=== PATIENT | male | born 1960 | race Caucasian/White ===

== ENCOUNTER → 2016-08-04 | Day surgery (SDC) | payer OTHER ==
[2016-07-31 09:09] VITALS: BMI 47.0
[~2016-08-04] VITALS: Ht 177.8 cm; Wt 147.7 kg
[~2016-08-04] MED LIST: CANA1TAB3 PO; FOLI1TAB7 PO; FURO-85 PO; HYDR-4332 PO; LIDOCAINE HCL 2% 2 ML VIAL (20MG/ML) ONE; LOSA1TAB PO; METF-384 PO; PROPOFOL IV EMULSION 10 MG/ML 20 ML VIAL IV ONE; RANI300T2 PO; RIVA1TAB4 PO; SITA100T3 PO; SODIUM CHLORIDE 0.9% 500ML 500 ML IV ONE
[2016-08-04 09:35] VITALS: Ht 177.8 cm; Wt 147.7 kg
[2016-08-04 09:53] VITALS: TEMP 36.8
--- NOTE | 2016-08-04 10:46 | Endo History and Physical ---
History & Physical Date of Service: Aug 04, 2016. Chief Complaint: screening for colon cancer Referring Physician: Dr. Gutierrez History of Present Illness 55 yo CM who presents for screening colonoscopy Past Surgical History Hx Cardiac Surgery: Yes (HEART CATH, NO STENT) Hx Internal Defibrillator: No Hx Pacemaker: No Hx Abdominal Surgery: No Hx of Implantable Prosthesis: No Hx Post-Op Nausea and Vomiting: No Hx Cancer Surgery: No Hx Thoracic Surgery: No Hx Orthopedic: No Hx Urinary Tract Surgery: No Family History None Social History Smoking Status: Former Smoker Hx Substance Use: Yes (SEE MED REC) Hx Alcohol Use: Yes (VERY RARELY) Allergies Coded Allergies: Penicillins (Verified Allergy, Intermediate, RASH, 07/31/16) Current Medications Reported Home Medications Medications Dose Route/Sig Max Daily Dose Days Date Category Invokana (Canagliflozin) 300 Mg Tab 1 Tab PO QPM 07/31/16 Reported Zantac (Ranitidine HCl) 300 Mg Tab 300 Mg PO QPM 07/31/16 Reported Cozaar (Losartan Potassium) 25 Mg Tab 25 Mg PO QPM 07/31/16 Reported Lasix (Furosemide) 20 Mg Tab 20 Mg PO QPM 02/29/16 Reported Januvia (Sitagliptin Phosphate) 100 Mg Tab 100 Mg PO QPM 02/29/16 Reported LORTAB 10-325 mg (Hydrocodone-Acetaminophen) 1 Tab Tab 1 Tab PO BID PRN 02/29/16 Reported Folvite (Folic Acid) 1 Mg Tab 3 Tab PO QPM 02/29/16 Reported Xarelto (Rivaroxaban) 20 Mg Tab 20 Mg PO QPM 02/29/16 Reported Glucophage (Metformin Hcl) 1,000 Mg Tab 2 Tabs PO QPM 02/29/16 Reported Vital Signs Weight (Kilograms): 147.73 Height (Feet): 5 Height (Inches): 10 Date Time Temp Pulse Resp B/P Pulse Ox O2 Delivery O2 Flow Rate FiO2 08/04/16 09:53 36.8 70 18 170/98 95 Room Air Physical Exam General Appearance: WD/WN, no apparent distress Respiratory/Chest: Auscultation: breath sounds normal Cardiovascular: Heart Auscultation: RRR Abdomen: Bowel Sounds: normal Inspection & Palpation: soft, non-distended, no tenderness, guarding & rebound Assessment and Plan Assessment: 55 yo CM who presents for screening colonoscopy Plan: Proceed with colonoscopy.
--- NOTE | 2016-08-04 11:16 | Discharge Instructions ---
Endoscopy Patient Instructions Date / Procedure(s) Performed Aug 04, 2016. Colonoscopy Allergy Information Coded Allergies: Penicillins (Verified Allergy, Intermediate, RASH, 07/31/16) Discharge Date / Findings Aug 04, 2016. Colon polyp Internal hemorrhoids Medication Instructions Stopped Medication(s): xeralto stopped on Sun08/02/16 OK to resume all medications today as prescribed Reported Home Medications Medications Dose Route/Sig Max Daily Dose Days Date Category Invokana (Canagliflozin) 300 Mg Tab 1 Tab PO QPM 07/31/16 Reported Zantac (Ranitidine HCl) 300 Mg Tab 300 Mg PO QPM 07/31/16 Reported Cozaar (Losartan Potassium) 25 Mg Tab 25 Mg PO QPM 07/31/16 Reported Lasix (Furosemide) 20 Mg Tab 20 Mg PO QPM 02/29/16 Reported Januvia (Sitagliptin Phosphate) 100 Mg Tab 100 Mg PO QPM 02/29/16 Reported LORTAB 10-325 mg (Hydrocodone-Acetaminophen) 1 Tab Tab 1 Tab PO BID PRN 02/29/16 Reported Folvite (Folic Acid) 1 Mg Tab 3 Tab PO QPM 02/29/16 Reported Xarelto (Rivaroxaban) 20 Mg Tab 20 Mg PO QPM 02/29/16 Reported Glucophage (Metformin Hcl) 1,000 Mg Tab 2 Tabs PO QPM 02/29/16 Reported Provider Instructions Activity Restrictions - No exercising or heavy lifting for 24 hours. - Do not drink alcohol the day of the procedure. - Do not drive a car or operate machinery until the day after the procedure. - Do not make any important decisions or sign important papers in 24 hours after the procedure. Following Day: - Return to full activity which may include returning to work/school. Diet Start your diet with liquids and light foods (jello, soup, juice, toast). Then eat your usual diet if not nauseated. Treatment For Common After Affects For mild abdominal pain, bloating, or excessive gas: - Rest - Eat lightly - Lie on right side Follow-Up Information Follow-up with Dr. Gutierrez as scheduled Anesthesia Information What You Should Know You have had a procedure that required some medicine to reduce anxiety and discomfort. This treatment is called moderate sedation. After receiving the treatment, you may be sleepy, but you will be able to breathe on your own. The effects of the treatment may last for several hours. Follow these instructions along with Activity/Diet recommendations noted above: * Do NOT do anything where dizziness or clumsiness would be dangerous. * Rest quietly at home today, then you can be up and about tomorrow. * Have a responsible person stay with you the rest of today. * You may have had an I.V. today. If so, you may take the dressing off later today. Recommendations Call your doctor if: * Trouble breathing * Continuous vomiting for more than 24 hours * Temperature above 101 degrees * Severe abdominal pain or bloating * Pain not relieved by pain medicine ordered * There is increased drainage or redness from any incision * A large amount of rectal bleeding greater than 2-3 tablespoons. (If you had a polyp/s removed or have hemorrhoids, a small amount of blood - from the rectum is to be expected.) * You have any unanswered questions or concerns. IN THE EVENT OF A SERIOUS EMERGENCY, GO TO THE NEAREST EMERGENCY ROOM Your discharge instructions were prepared by provider Kenney Byrd. Patient Instructions Signature Page Ángel Ellis Patient (or Guardian) Signature/Date: I have read and understand the instructions given to me by my caregivers. Caregiver/RN/Doctor Signature/Date: The above-named patient and/or guardian has received patient instructions on this date. + Original Patient Signature Page (only) stays with chart. Please make copy for patient.
--- NOTE | 2016-08-04 11:32 | Anesthesiology Progress Note ---
Anesthesia Post Op Note Date & Time Aug 04, 2016 at 11:33 Vital Signs Pain Intensity: 0 Vital Signs Past 12 Hours Date Time Temp Pulse Resp B/P Pulse Ox O2 Delivery O2 Flow Rate FiO2 08/04/16 11:19 76 18 140/89 95 Room Air 08/04/16 11:04 80 16 137/74 92 Room Air 08/04/16 09:53 36.8 70 18 170/98 95 Room Air Notes Mental Status: alert / awake / arousable, participated in evaluation Pt Amnestic to Procedure: Yes Nausea / Vomiting: adequately controlled Pain: adequately controlled Airway Patency, RR, SpO2: stable & adequate BP & HR: stable & adequate Hydration State: stable & adequate Anesthetic Complications: no major complications apparent
[2016-08-04 11:34] VITALS: BP 154/97; PULSE 77; O2SAT 96
--- NOTE | 2016-08-04 15:03 | GI REPORT ---
Procedure Date: 08/04/2016 10:21 AM Procedure: Colonoscopy Indications: Screening for colorectal malignant neoplasm Medicines: Monitored Anesthesia Care Complications: No immediate complications. Estimated Blood Loss: Estimated blood loss: none. Procedure: Pre-Anesthesia Assessment: - Prior to the procedure, a History and Physical was performed, and patient medications and allergies were reviewed. The patient's tolerance of previous anesthesia was also reviewed. The risks and benefits of the procedure and the sedation options and risks were discussed with the patient. All questions were answered, and informed consent was obtained. Prior Anticoagulants: The patient has taken Xarelto (rivaroxaban), last dose was 2 days prior to procedure. ASA Grade Assessment: III - A patient with severe systemic disease. After reviewing the risks and benefits, the patient was deemed in satisfactory condition to undergo the procedure. After I obtained informed consent, the scope was passed under direct vision. Throughout the procedure, the patient's blood pressure, pulse, and oxygen saturations were monitored continuously. The scope was introduced through the anus and advanced to the terminal ileum. The colonoscopy was performed without difficulty. The patient tolerated the procedure well. The quality of the bowel preparation was good. The terminal ileum, ileocecal valve, appendiceal orifice, and rectum were photographed. Findings: A 5 mm polyp was found in the transverse colon. The polyp was sessile. The polyp was removed with a hot snare. Resection and retrieval were complete. Non-bleeding internal hemorrhoids were found during retroflexion. The hemorrhoids were small. Impression: - One 5 mm polyp in the transverse colon, removed with a hot snare. Resected and retrieved. - Non-bleeding internal hemorrhoids. Recommendation: - Resume previous diet. - Continue present medications. - Repeat colonoscopy for surveillance based on pathology results. - Return to primary care physician as previously scheduled. Kenney Byrd DO 08/04/2016 3:03:08 PM This report has been signed electronically. Note Initiated On: 08/04/2016 10:21 AM I attest to the content of the Intraoperative Record and orders documented therein, exceptions below
== END | disposition home or self-care (01) ==
LOC: C.GI 09:08
PROVIDERS: ATTEND Internal Medicine
DX: Z12.11 Encounter for screening for malignant neoplasm of colon (principal); D12.3 Benign neoplasm of transverse colon; K64.8 Other hemorrhoids; E66.01 Morbid (severe) obesity due to excess calories; E11.9 Type 2 diabetes mellitus without complications; G47.33 Obstructive sleep apnea (adult) (pediatric); Z68.42 Body mass index [BMI] 45.0-49.9, adult; Z88.0 Allergy status to penicillin; Z87.891 Personal history of nicotine dependence

== ENCOUNTER → 2016-11-01 | Outpatient (CLI) | payer OTHER ==
[~2016-11-01] MED LIST changes: -LIDOCAINE HCL 2% 2 ML VIAL (20MG/ML) ONE; -PROPOFOL IV EMULSION 10 MG/ML 20 ML VIAL IV ONE; -SODIUM CHLORIDE 0.9% 500ML 500 ML IV ONE
== END | disposition home or self-care (01) ==
LOC: C.RDSM 14:20
PROVIDERS: ATTEND Family Medicine Sports Medicine
DX: M25.561 Pain in right knee (principal)

== ENCOUNTER → 2016-11-14 | Outpatient (CLI) | payer OTHER ==
[2016-11-14 17:50] LABS: ALT/SGPT 99 U/L (12-78); AST/SGOT 46 U/L (15-37); BLOOD UREA NITROGEN 12 mg/dl (7-18); BUN/CREATININE RATIO 11.6 (10-20); CARBON DIOXIDE 27 mmol/L (21-32); CHLORIDE 105 mmol/L (98-107); GLUCOSE 230 mg/dl (70-99); SODIUM 139 mmol/L (136-145)
[2016-11-14 17:53] LABS: ALB/GLOB RATIO 1.1 (0.9-2); ALKALINE PHOSPHATASE 53 U/L (45-117)
== END | disposition home or self-care (01) ==
LOC: C.LABPBG 11:47
PROVIDERS: ATTEND Family Medicine
DX: R74.8 Abnormal levels of other serum enzymes (principal); K76.0 Fatty (change of) liver, not elsewhere classified

== ENCOUNTER → 2016-12-22 | Outpatient (CLI) | payer OTHER ==
[2016-12-22 12:24] LABS: BASO % 0.3 %; BASO ABS # 0.02 K/uL (0-0.2); COMPLETE YES; EOS % 2.8 %; HEMATOCRIT 49.2 % (42-52); IG% 1.1 %; LYMPH % 34.3 %; LYMPH ABS # 2.12 K/uL (1.2-3.4); MEAN CELL VOLUME 91.3 fL (80-100); MEAN CORPUSCULAR HEMOGLOBIN 31.5 pg (25-34); MEAN CORPUSCULAR HGB CONC 34.6 g/dl (32-36); MEAN PLATELET VOLUME 10.9 fL (7.4-10.4); NEUT % 51.5 %; PLATELET COUNT 179 K/uL (130-400); RED BLOOD COUNT 5.39 M/uL (4.7-6.1); WHITE BLOOD COUNT 6.18 K/uL (4.8-10.8)
== END | disposition home or self-care (01) ==
LOC: C.LABPBG 10:56
PROVIDERS: ATTEND Physician Assistant
DX: R21 Rash and other nonspecific skin eruption (principal)

== ENCOUNTER → 2017-01-02 | Outpatient (CLI) | payer OTHER ==
--- NOTE | 2017-01-02 11:39 | DIAGNOSTIC IMAGING REPORT ---
VENOUS DOPPLER LWR EXT BILA HISTORY: I87.2 Venous insufficiency (chronic) (peripheral) COMPARISON: Left lower extremity venous Doppler 09/01/2014 TECHNIQUE: Multiple real-time sonographic images of the deep venous structures of the lower extremities were obtained assessing lovell scale, color Doppler flow and spectral waveform appearance. FINDINGS: RIGHT LOWER EXTREMITY: The common femoral, profunda femoral, femoral, popliteal, and greater saphenous veins demonstrate complete compressibility with external transducer pressure and spontaneous and phasic spectral and color flow. The posterior tibial and peroneal veins demonstrate complete compressibility with external transducer pressure. LEFT LOWER EXTREMITY: At least partially occlusive echogenic thrombus is seen within the common femoral, mid femoral vein and proximal portion of the greater saphenous vein and also within portions of the anterior tibial and peroneal veins. The popliteal vein appears patent. IMPRESSION: 1. Extensive echogenic deep venous thrombosis throughout the left lower extremity is seen extending from the common femoral vein distally as above. 2. No right-sided deep venous thrombosis identified. The above report was generated using voice recognition software. It may contain grammatical, syntax or spelling errors. Electronically signed by: Rashaun Munoz M.D. 01/02/2017 11:37 AM Dictated Date/Time: 01/02/2017 11:28 AM
[2017-01-02 14:51] LABS: ESTIMATED AVERAGE GLUCOSE 171 mg/dl; HA1C FLAG Normal (Normal)
== END | disposition home or self-care (01) ==
LOC: C.ULTRBC 10:27
PROVIDERS: ATTEND Physician Assistant
DX: I87.2 Venous insufficiency (chronic) (peripheral) (principal); R21 Rash and other nonspecific skin eruption; E11.9 Type 2 diabetes mellitus without complications; I82.412 Acute embolism and thrombosis of left femoral vein

== ENCOUNTER → 2017-09-18 | Outpatient (CLI) | payer OTHER ==
[~2017-09-18] MED LIST changes: -FOLI1TAB7 PO; +FOLI1TAB8 PO
[2017-09-18 14:33] LABS: ALT/SGPT 80 U/L (12-78); AST/SGOT 45 U/L (15-37); BLOOD UREA NITROGEN 9 mg/dl (7-18); CALCIUM 9.6 mg/dl (8.5-10.1); CARBON DIOXIDE 23 mmol/L (21-32); CHOLESTEROL 230 mg/dl (0-200); CREATININE 0.91 mg/dl (0.60-1.40); GLUCOSE 312 mg/dl (70-99); SODIUM 134 mmol/L (136-145)
[2017-09-18 14:39] LABS: ALKALINE PHOSPHATASE 70 U/L (45-117); LDL CHOLESTEROL CALCULATED 120 mg/dl; TOTAL PROTEIN 7.7 gm/dl (6.4-8.2)
[2017-09-19 05:53] LABS: HEMOGLOBIN A1C 10.7 % (4.5-5.6)
== END | disposition home or self-care (01) ==
LOC: C.LABPBG 09:07
PROVIDERS: ATTEND Family Medicine
DX: E11.9 Type 2 diabetes mellitus without complications (principal)

== ENCOUNTER 2025-03-23 15:33 | Observation (INO) ==
[2025-03-23 16:07] LABS: Hematocrit (blood only) 44.1 % (42.0-52.0); Hemoglobin 15.4 g/dl (14.0-18.0); Immature Granulocytes # (auto) 0.06 K/uL (0.01-0.20); Immature Granulocytes % (auto) 0.7 %; Mean Corpuscular Hemoglobin 31.6 pg (25.0-34.0); Mean Corpuscular Volume 90.6 fL (80.0-100.0); Platelet Count 166 K/uL (130-400); RDW Standard Deviation 42.8 fL (36.4-46.3); Red Blood Count 4.87 M/uL (4.70-6.10); White Blood Count 8.11 K/ul (4.8-10.8)
[2025-03-23 16:31] LABS: Alanine Aminotransferase 15.0 U/L (7-52); Albumin Globulin Ratio 1.1 (0.9-2); Albumin Level 3.9 gm/dl (3.4-5.0); Alkaline Phosphatase 76.0 U/L (34-104); Anion Gap 13.0 (3-11); Bilirubin,Total 1.0 mg/dl (0.2-1.0); Blood Urea Nitrogen 14.0 mg/dl (6-23); Calcium 9.4 mg/dl (8.6-10.3); Carbon Dioxide 22.0 mmol/L (21-32); Chloride 100.0 mmol/L (98-107); Creatinine Clr Calc Pharmacy 109.9 ml/min; Globulin 3.5 gm/dl (2.5-4.0); Glucose 295.0 mg/dl (70-99(Fasting)); Potassium 3.9 mmol/L (3.5-5.1); Sodium 135.0 mmol/L (136-145); Total Protein 7.4 gm/dl (6.0-8.3)
--- NOTE | 2025-03-23 16:31 | XRay Report ---
Clinical History: Chest pain and shortness of breath Technique: A frontal view of the chest was obtained Findings: There are no confluent pulmonary infiltrates. The heart size is at the upper limit of normal. No pleural effusion or pneumothorax is seen. There is no definite pulmonary nodule. No fracture is noted. There is thoracic degenerative disc disease Impression: No active disease Electronically signed by Braulio Cuellar 03-23-2025 4:30 PM
[2025-03-23 16:34] LABS: INR 1.2 (0.9-1.1); Partial Thromboplastin Time 31 Seconds (21-31); Prothrombin Time 13.0 Seconds (9.0-12.0)
--- NOTE | 2025-03-23 16:52 | Ultrasound Report ---
Clinical History: Pain and swelling Technique: Venous ultrasound evaluation was performed utilizing grayscale, color Doppler and wave form evaluation. Images were also obtained with and without compression Findings: The right common femoral, superficial femoral, popliteal, and visualized calf veins all demonstrate thrombus with lack of compressibility and hypoechoic material within the lumens. There is also thrombus within the greater saphenous vein Impression: Extensive right leg deep venous thrombosis ACT 112: Positive. There are findings on this exam that require communication between the performing entity and the patient following Patient Test Result Information Act ([place] ACT 112) guidelines. Electronically signed by Braulio Cuellar 03-23-2025 4:52 PM
[2025-03-23] MEDS: OPTIRAY 320 125ml IV ONE (16:56)
--- NOTE | 2025-03-23 17:21 | CT Scan Report ---
Technique: Axial computed tomography images were obtained of the chest after the administration of intravenous contrast according to the CT angiogram protocol Findings: There is pulmonary embolism in the distal right pulmonary artery and extending into lobar, segmental, and subsegmental branches There is mild dependent subsegmental atelectasis in both lower lobes. The lungs otherwise appear clear without infiltrate or mass. There is no pleural effusion or pneumothorax. There is no sign of pulmonary fibrosis or other diffuse interstitial process. No endobronchial lesion is seen There is no mediastinal, hilar, or axillary adenopathy. The thoracic aorta appears unremarkable with no sign of aneurysm or dissection. There is no pericardial effusion. There is mild dilatation of the right atrium and right ventricle that could be due to right heart strain The spleen is mildly enlarged measuring 14 cm. There are 2 adjacent cysts of the left hepatic lobe, the larger measuring 3.5 cm. There are suspected smaller cysts in the right hepatic lobe with adjacent foci of calcification. No fracture is seen. No focal osseous lesion is evident Impression: 1. Moderate amount of pulmonary embolism 2. Suspected right heart strain 3. Essentially normal-appearing lungs 4. Hepatic cysts ACT 112: Positive. There are findings on this exam that require communication between the performing entity and the patient following Patient Test Result Information Act ([place] ACT 112) guidelines. Electronically signed by Braulio Cuellar 03-23-2025 5:21 PM
[2025-03-23] MEDS ORDERED: DEXTROSE 50% 50 ML SYRINGE IV PRN (18:19)
[2025-03-23] MEDS ORDERED: CARBOHYDRATES FOR HYPOGLYCEMIA PO PRN (18:19)
[2025-03-23] MEDS ORDERED: ONDANSETRON INJ 2 MG/ML 2 ML VIAL IV PRN (18:19)
[2025-03-23] MEDS ORDERED: GLUCAGON FOR INJ 1 MG VIAL SQ PRN (18:19)
[2025-03-23] MEDS ORDERED: MELATONIN 3 MG TAB PO PRN (18:19)
[2025-03-23] MEDS ORDERED: GLUCOSE 40% GEL 15 GM TUBE PO PRN (18:19)
[2025-03-23] MEDS ORDERED: GLUCOSE 10 TAB/TUBE PO PRN (18:19)
--- NOTE | 2025-03-23 18:21 | Communication Note ---
Date of Service: March 23, 2025 I personally examined the patient and verified all woodward points of history and exam, discussed case, and agree with decision making with Dr Lara sent for concern on DVT, PE - (+). missed at least a few doses of xarelto (apparently cost prohibitive) - in setting of known hypercoagulable state with prior PEs vitals noted nad heent nc at mmm poor dentition breathing unlabored on room air no accessory muscles no conversational dyspnea good effort skin without rashes pallor or icterus acute PE/DVT with CT findings also c/w right heart strain in the setting of hypercoagulable state and cost prohibitive anticoagulation - admit, anticoagulate, work on determining what will be affordable b12 deficiency - replace otherwise as above
--- NOTE | 2025-03-23 18:23 | Billing Data ---
Date of Service March 23, 2025 Coding Level of Care Code 73460 INT INP/OBS CARE
--- NOTE | 2025-03-23 19:02 | History & Physical Report ---
Date of Service March 23, 2025 Assessment & Plan (1) DVT femoral (deep venous thrombosis) with thrombophlebitis: (2) Pulmonary embolism: (3) Atrial fibrillation: (4) Diabetes type 2, uncontrolled: (5) Obstructive sleep apnea: (6) Hypertension: Plan Pt is a 64 yo male with PMH of a-fib, depression, DM2, JESSICA, dyslipidemia, factor V Leiden, venous insufficiency, and hx of DVT/PE admitted for heparin drip due to stable right DVT and PE. #DVT/PE LE doppler showing several stable thromboses in right leg. CTA chest showing stable thrombosis at distal right pulmonary artery. Vitals are stable. Pt unable to afford oral meds. - Heparin drip started in ED, will continue overnight - Bridge to oral med in the AM - Will reach out to for assistance for pt to be able to afford - Tylenol 650mg po prn for LE pain #DM2 Last A1c was 12.4% - Glargine 10u BID - Aspart per SS Low 110, high 140 CF 40, CR 13 #B12 deficiency - Ordered B12 1000mcg PO qam #JESSICA -CPAP for overnight Dispo; med/surg Diet: DM2 VTE proph: heparin drip Code: full History of Present Illness Chief Complaint: Right leg pain and swelling, difficulty breathing Primary Care Provider: Juli Gutierrez DO Pt is a 64 yo male with PMH of a-fib, depression, DM2, JESSICA, dyslipidemia, factor V Leiden, venous insufficiency, and hx of DVT/PE who presented to his PCP office with c/o right lower leg and thigh pain as well as recent onset of shortness of breath. Pt states right lower leg pain started 2-3 days ago in claf and has traveled to thigh. Increased difficulty breathing started today. Pt had been prescribed Xarelto, but states he has not taken it over the last couple months due to not being able to afford the prescription. Pt denies fever/chills, CP, abdominal pain, dizziness, headache, N/V/D. Allergies Allergy/AdvReac Type Severity Reaction Status Date / Time zolpidem [From Ambien] Allergy Intermediate COULD NOT Verified 03/23/25 14:05 SLEEP Penicillins Allergy Mild RASH Verified 03/23/25 14:05 Home Medications Medication Instructions Recorded Confirmed Type metoprolol tartrate 100 mg tablet 100 mg PO BID #180 tabs 12/19/23 03/23/25 Rx pen needle, diabetic 31 gauge x #100 ea 12/19/23 03/23/25 Rx 3/16" (BD Ultra-Fine Mini Pen Needle) empagliflozin 25 mg tablet 25 mg PO DAILY #90 tabs 03/24/24 03/23/25 Rx (Jardiance) metformin 1,000 mg tablet 1,000 mg PO BID 90 days #180 tabs 03/24/24 03/23/25 Rx losartan 50 mg tablet 50 mg PO DAILY #90 tabs 06/25/24 03/23/25 Rx rivaroxaban 20 mg tablet (Xarelto) 20 mg PO DAILY #90 tabs 06/25/24 03/23/25 Rx cholecalciferol (vitamin D3) 50 4,000 unit PO DAILY #90 tabs 08/29/24 03/23/25 Rx mcg (2,000 unit) tablet leg brace (Knee Brace Large-XLarge) #1 ea 09/02/24 03/23/25 Rx leg brace (Knee Brace Large-XLarge) #1 ea 09/02/24 03/23/25 Rx atorvastatin 20 mg tablet 20 mg PO DAILY #90 tabs 10/28/24 03/23/25 Rx furosemide 20 mg tablet 40 mg (2 x 20 mg) PO DAILY #180 10/28/24 03/23/25 Rx tabs blood-glucose sensor (Dexcom G7 #3 ea 12/02/24 03/23/25 Rx Sensor device) blood-glucose,visual design lead,cont #1 ea 12/02/24 03/23/25 Rx (Dexcom G7 [employer]) semaglutide 1 mg/dose (4 mg/3 mL) 1 mg (0.75 mL) subcut .weekly #3 mL 12/04/24 03/23/25 Rx subcutaneous pen injector Diabetic Shoes #1 ea 01/19/25 03/23/25 Rx insulin glargine 100 unit/mL (3 20 unit (0.2 mL) subcut DAILY #15 01/19/25 03/23/25 Rx mL) subcutaneous pen (Lantus mL Solostar U-100 Insulin) compress.stocking,knee,reg,med #2 ea 01/20/25 03/23/25 Rx Past Med/Surg History Problem List (Updated 03/23/25 @ 19:17 by Nicolasa Lara DO) Pulmonary embolism DVT femoral (deep venous thrombosis) with thrombophlebitis Atrial fibrillation (08/2021) Obesity History of colon polyps Depression Chronic deep venous thrombosis Acid reflux B12 deficiency Proteinuria Insomnia Hepatic cyst Intellectual disability Diabetes type 2, uncontrolled Fatty liver Obstructive sleep apnea Osteoarthritis Vitamin D deficiency Dyslipidemia Hypertension Anticoagulant long-term use TAKING XARELTO Factor V Leiden mutation Tubular adenoma of colon Venous insufficiency (chronic) (peripheral) History of DVT of lower extremity OVER 5 YEARS AGO ? DETAILS History of pulmonary embolism OVER 5 YEARS AGO ? DETAILS Medical History Insomnia Surgical History History of tooth extraction S/P IVC filter Family History Mother Diabetes Father Hypertension Denies family history of Ovarian cancer Prostate cancer Myocardial infarction Breast cancer Lung cancer Colorectal cancer Social History Smoking Status: Unknown if ever smoked Tobacco Type: Cigars and Smokeless Tobacco (Dip or Chew) Age Started Using Tobacco: 11; packs per day: 0.25; Cigarettes Per Day: CIGARS off/ on- CHEWS TOBACCO DAILY; Second Hand Exposure: No; Do You Dip or Chew Tobacco: Yes; Hx Alcohol Use: Yes Alcohol Intake Frequency: Monthly or Less Hx Substance Use: No Preferred Language: Serbian Communication Ability: Effective Visual Impairment: No Limitations Hearing Ability: Normal Ocean Biologist Required: No Beliefs That Will Affect Care: None marital status: Current Living Situation: Alone current occupational status: disabled How many Children do You have: 0 Feels Safe at Home: Yes Childhood Exposure to Second-Hand Smoke: No Diet: regular Diet Comment: regular caffeine: Yes (coffee) during the past year weight has: increased > 10 lbs Dental Care, Regularly: No Physical Activity Frequency: Does not Exercise Seatbelt Use: always Sunscreen Use: No Assistive Devices: Brace/Splint/Immobilizer and Glasses Review of Systems Review of Systems: As per HPI Physical Exam Physical Exam: Gen: NAD HENT: Normocephalic, atraumatic. External ear without deformities. Trachea midline, no thyromegaly Cardio: RRR, no murmurs or clicks. Resp: CTAB, Equal bilateral chest rise, no increased work of breathing GI: Non distended, soft, non tender, normoactive bowel sounds Ext: Moving all 4 extremities independently, right LE with firm swelling at calf, ankle and foot. Left LE soft, non tender Skin: Dry, of normal skin tone Neuro: A& O x 3, normal affect Results & Data Results & Data Vital Signs (Past 12 Hours) Vital Signs Temp Pulse Pulse Resp BP BP Pulse Ox 03/23/25 18:47 69 16 124/80 98 03/23/25 18:07 75 20 124/80 93 03/23/25 17:00 78 20 126/72 94 03/23/25 15:37 37 C 91 H 19 124/80 94 O2 Del Method 03/23/25 18:47 Room Air 03/23/25 18:07 Room Air 03/23/25 17:00 Room Air 03/23/25 15:37 Room Air Code Status & VTE Plan VTE Prophylaxis Plan VTE Prophylaxis will be ordered: Yes Resident Activity Tracking Resident Involvement: Resident Care Provided Care Provided: Adult Hospital Medicine
[2025-03-23] MEDS: HEPARIN SOD (PORCINE) 1000 UNIT/ML IV ONE (19:27)
[2025-03-23] MEDS: HEPARIN 25000 UNIT/500 ML D5W 25,000 UNITS/500 ML BAG IV SCH (19:27)
[2025-03-23] MEDS: Heparin IV Adult Wt-Based Standard w/ INITIAL Bolus Protocol IV STA (19:43)
--- NOTE | 2025-03-23 20:16 | Emergency Department Note ---
History of Present Illness General Chief complaint: Referred by Doctor Stated complaint: POSSIBLE BOOD CLOT RT LEG/CHEST DOC REFERRAL Time Seen by Provider: 03/23/25 15:56 History of Present Illness Provider complaint: Right leg pain shortness of breath Maximum Pain Intensity: 9 64-year-old male presents emerged permit for leg pain and shortness of breath. Patient reports history of DVT. Patient states he is on Xarelto. Patient reports no chest pain. Home Medications Medication Instructions Recorded Confirmed Type metoprolol tartrate 100 mg tablet 100 mg PO BID #180 tabs 12/19/23 03/23/25 Rx pen needle, diabetic 31 gauge x #100 ea 12/19/23 03/23/25 Rx 3/16" (BD Ultra-Fine Mini Pen Needle) empagliflozin 25 mg tablet 25 mg PO DAILY #90 tabs 03/24/24 03/23/25 Rx (Jardiance) metformin 1,000 mg tablet 1,000 mg PO BID 90 days #180 tabs 03/24/24 03/23/25 Rx losartan 50 mg tablet 50 mg PO DAILY #90 tabs 06/25/24 03/23/25 Rx rivaroxaban 20 mg tablet (Xarelto) 20 mg PO DAILY #90 tabs 06/25/24 03/23/25 Rx cholecalciferol (vitamin D3) 50 4,000 unit PO DAILY #90 tabs 08/29/24 03/23/25 Rx mcg (2,000 unit) tablet leg brace (Knee Brace Large-XLarge) #1 ea 09/02/24 03/23/25 Rx leg brace (Knee Brace Large-XLarge) #1 ea 09/02/24 03/23/25 Rx atorvastatin 20 mg tablet 20 mg PO DAILY #90 tabs 10/28/24 03/23/25 Rx furosemide 20 mg tablet 40 mg (2 x 20 mg) PO DAILY #180 10/28/24 03/23/25 Rx tabs blood-glucose sensor (Dexcom G7 #3 ea 12/02/24 03/23/25 Rx Sensor device) blood-glucose,vending technician,cont #1 ea 12/02/24 03/23/25 Rx (Dexcom G7 Career Services Coordinator) semaglutide 1 mg/dose (4 mg/3 mL) 1 mg (0.75 mL) subcut .weekly #3 mL 12/04/24 03/23/25 Rx subcutaneous pen injector Diabetic Shoes #1 ea 01/19/25 03/23/25 Rx insulin glargine 100 unit/mL (3 20 unit (0.2 mL) subcut DAILY #15 01/19/25 03/23/25 Rx mL) subcutaneous pen (Lantus mL Solostar U-100 Insulin) compress.stocking,knee,reg,med #2 ea 01/20/25 03/23/25 Rx Allergies Allergy/AdvReac Type Severity Reaction Status Date / Time zolpidem [From Ambien] Allergy Intermediate COULD NOT Verified 03/23/25 14:05 SLEEP Penicillins Allergy Mild RASH Verified 03/23/25 14:05 Past Med/Surg History Problem List (Updated 03/23/25 @ 20:23 by Gonzalez Eduardo MD) DVT (deep venous thrombosis) (Acute) Pulmonary embolism (Acute) DVT femoral (deep venous thrombosis) with thrombophlebitis Atrial fibrillation (08/2021) Obesity History of colon polyps Depression Chronic deep venous thrombosis Acid reflux B12 deficiency Proteinuria Insomnia Hepatic cyst Intellectual disability Diabetes type 2, uncontrolled Fatty liver Obstructive sleep apnea Osteoarthritis Vitamin D deficiency Dyslipidemia Hypertension Anticoagulant long-term use TAKING XARELTO Factor V Leiden mutation Tubular adenoma of colon Venous insufficiency (chronic) (peripheral) History of DVT of lower extremity OVER 5 YEARS AGO ? DETAILS History of pulmonary embolism OVER 5 YEARS AGO ? DETAILS Medical History Insomnia Surgical History History of tooth extraction S/P IVC filter RT LEG Family History Mother Diabetes Father Hypertension Denies family history of Ovarian cancer Prostate cancer Myocardial infarction Breast cancer Lung cancer Colorectal cancer Social History Smoking Status: Unknown if ever smoked Tobacco Type: Cigars and Smokeless Tobacco (Dip or Chew) Age Started Using Tobacco: 11; packs per day: 0.25; Cigarettes Per Day: CIGARS off/ on- CHEWS TOBACCO DAILY; Second Hand Exposure: No; Do You Dip or Chew Tobacco: Yes; Hx Alcohol Use: Yes Alcohol Intake Frequency: Monthly or Less Hx Substance Use: No Preferred Language: Macedonian Communication Ability: Effective Visual Impairment: No Limitations Hearing Ability: Normal Knockup Worker Required: No Beliefs That Will Affect Care: None marital status: Current Living Situation: Alone current occupational status: disabled How many Children do You have: 0 Feels Safe at Home: Yes Childhood Exposure to Second-Hand Smoke: No Diet: regular Diet Comment: regular caffeine: Yes (coffee) during the past year weight has: increased > 10 lbs Dental Care, Regularly: No Physical Activity Frequency: Does not Exercise Seatbelt Use: always Sunscreen Use: No Assistive Devices: Brace/Splint/Immobilizer and Glasses Physical Exam Vital Signs Vital Signs - 24 hr 03/23/25 15:37 03/23/25 17:00 03/23/25 18:07 Temperature 37 C Temperature Source Temporal Artery Scan Pulse Rate 91 H Pulse Rate [Apical] 78 75 Pulse Rhythm [Apical] Pulse Strength [Apical] Respiratory Rate 19 20 20 Respiratory Effort / Characteristics Respiratory Depth Respiratory Pattern Blood Pressure 124/80 Blood Pressure [Right Arm] 126/72 124/80 Blood Pressure Mean 94 Blood Pressure Mean [Right Arm] 90 94 Pulse Oximetry 94 94 93 Oxygen Delivery Method Room Air Room Air Room Air Sepsis Recent Fever Within 48 Hours No Sepsis New/Unexplained Change in Mental Status N/A Sepsis Action Taken by Nursing No Action Required 03/23/25 18:47 03/23/25 19:30 03/23/25 20:00 Temperature Temperature Source Pulse Rate Pulse Rate [Apical] 69 83 77 Pulse Rhythm [Apical] Regular Regular Regular Pulse Strength [Apical] Normal Normal Respiratory Rate 16 21 18 Respiratory Effort / Characteristics Non-Labored Spontaneous Non-Labored Spontaneous Respiratory Depth Normal Normal Normal Respiratory Pattern Regular Regular Blood Pressure Blood Pressure [Right Arm] 124/80 105/67 131/85 Blood Pressure Mean Blood Pressure Mean [Right Arm] 94 79 100 Pulse Oximetry 98 97 97 Oxygen Delivery Method Room Air Room Air Room Air Sepsis Recent Fever Within 48 Hours Sepsis New/Unexplained Change in Mental Status Sepsis Action Taken by Nursing Physical Exam GENERAL: Disheveled. HENT: Exam performed. - Head: Normocephalic and atraumatic. EYES: Conjunctivae and EOM are normal. Right eye exhibits no discharge. Left eye exhibits no discharge. No scleral icterus. NECK: Normal range of motion. Neck supple. No JVD present. CV: Normal rate, regular rhythm, normal heart sounds and intact distal pulses. There is no peripheral edema. Palpable radial pulses bue. PULM/CHEST: Effort normal and breath sounds normal. No respiratory distress. No stridor. no wheezes. no rales. ABD: The abdomen is soft. There is no tenderness. MUSC: Swelling and tenderness to palpation of the right calf. Palpable DP and PT pulses bilateral lower extremities. NEURO: Motor and sensation grossly intact. SKIN: Skin is warm and dry. He is not diaphoretic. PSYCH: normal mood and affect. Behavior is normal. Judgment and thought content normal. Course Course 1556: The patient was evaluated in room D4B. A complete history and physical exam was performed Cardiac monitoring: An order was placed for continuous cardiac monitoring. The monitor shows a rate of 80 with sinus rhythm interpreted by me 1656: Vital signs stable. Ultrasound reviewed by me shows a large DVT. Patient is now stating that he has been noncompliant with his Xarelto stating he cannot afford it. Patient states he does not think he has taken it in at least 2 days but is states he is not sure and it could be longer. 1745: Vital signs stable. CTA of the chest shows PEs. Patient states he cannot afford his Xarelto. Patient be started on heparin bolus and drip admitted to the hospitalist team. Administered Medications Heparin Sodium/Dextrose (Heparin 81748 Unit/500 Ml D5w) 25,000 units in 500 mls @ 34 mls/hr IV .[id number] [facility]; Protocol Stop: 04/22/25 17:59 Last Admin: 03/23/25 19:27 Dose: 1,700 units/hr, 34 mls/hr Documented By: ABIDA Co-signed By: KADE Discontinued Medications Heparin Sodium (Porcine) (Heparin Sod (Porcine) 1000 Unit/Ml) 1 units IV NOW ONE Stop: 03/23/25 18:00 Last Admin: 03/23/25 19:27 Dose: 8,000 units Documented By: ABIDA Co-signed By: KADE Heparin Sodium/Dextrose (Heparin Iv Adult Wt-Based Standard W/ Initial Bolus Protocol) 1 each IV NOW [facility]; Protocol Stop: 03/23/25 17:45 Last Admin: 03/23/25 19:43 Dose: Not Given Documented By: ABIDA Ioversol (Optiray 320 125ml) 115 ml IV ONCE ONE Stop: 03/23/25 16:57 Last Admin: 03/23/25 16:56 Dose: 115 ml Documented By: GABRIEL Critical Care Time Critical Care Time: Yes Total Critical Care Time: 56 I have personally spent greater than 56 minutes of critical care time in the direct management of this patient. This includes bedside care, interpretation of diagnostic studies, and testing, discussion with consultants, patient, and family members, and other required patient management activities. This 56 minutes is in excess of all separately billable procedures. Medical Decision Making Laboratory Data Attestation: I reviewed the patient's lab results. 03/23/25 15:54 03/23/25 15:54 Lab Results 03/23/25 Range/Units 15:54 WBC 8.11 (4.8-10.8) K/ul RBC 4.87 (4.70-6.10) M/uL Hgb 15.4 (14.0-18.0) g/dl Hct 44.1 (42.0-52.0) % MCV 90.6 (80.0-100.0) fL MCH 31.6 (25.0-34.0) pg MCHC 34.9 (32.0-36.0) g/dL RDW Std Deviation 42.8 (36.4-46.3) fL RDW Coeff of Zachary 13.0 (11.5-14.5) % Plt Count 166 (130-400) K/uL MPV 11.3 (9.4-12.4) fL Immature Gran % (Auto) 0.7 % Neut % (Auto) 58.3 % Lymph % (Auto) 30.0 % Pickett % (Auto) 9.1 % Eos % (Auto) 1.7 % Baso % (Auto) 0.2 % Neut # (Auto) 4.72 (1.40-6.50) K/uL Lymph # (Auto) 2.43 (1.20-3.40) K/uL Pickett # (Auto) 0.74 H (0.11-0.59) K/uL Eos # (Auto) 0.14 (0.00-0.50) K/uL Baso # (Auto) 0.02 (0.00-0.20) K/uL Immature Gran # (Auto) 0.06 (0.01-0.20) K/uL PT 13.0 H (9.0-12.0) Seconds INR 1.2 H (0.9-1.1) APTT 31 (21-31) Seconds PTT Ratio 1.1 Sodium 135 L (136-145) mmol/L Potassium 3.9 (3.5-5.1) mmol/L Chloride 100 (98-107) mmol/L Carbon Dioxide 22 (21-32) mmol/L Anion Gap 13 H (3-11) BUN 14 (6-23) mg/dl Creatinine 0.89 (0.6-1.4) mg/dl Est Cr Clr Drug Dosing 109.9 ml/min eGFR 95.10 BUN/Creatinine Ratio 15.7 (10-20) Glucose 295 H (70-99(Fasting)) mg/dl Calcium 9.4 (8.6-10.3) mg/dl Total Bilirubin 1.0 (0.2-1.0) mg/dl AST 13 (13-39) U/L ALT 15 (7-52) U/L Alkaline Phosphatase 76 (34-104) U/L Troponin I High Sens 9.2 (0-20) pg/ml Total Protein 7.4 (6.0-8.3) gm/dl Albumin 3.9 (3.4-5.0) gm/dl Globulin 3.5 (2.5-4.0) gm/dl Albumin/Globulin Ratio 1.1 (0.9-2) Imaging Data Attestation: I personally reviewed and interpreted this imaging study as follows: My Impression: Ultrasound right lower extremity: DVT present Chest x-ray: Chest x-ray negative. Airway clear. No pneumothorax. No consolidation. No cardiomegaly or cephalization.. No free air under the diaphragm. No fractures of the skeletal structures. Radiologist's Impression: Venous Doppler Study 03/23/25 15:41 Clinical History: Pain and swelling Technique: Venous ultrasound evaluation was performed utilizing grayscale, color Doppler and wave form evaluation. Images were also obtained with and without compression Findings: The right common femoral, superficial femoral, popliteal, and visualized calf veins all demonstrate thrombus with lack of compressibility and hypoechoic material within the lumens. There is also thrombus within the greater saphenous vein Impression: Extensive right leg deep venous thrombosis ACT 112: Positive. There are findings on this exam that require communication between the performing entity and the patient following Patient Test Result Information Act ([place] ACT 112) guidelines. Electronically signed by Braulio Cuellar 03-23-2025 4:52 PM Chest X-Ray 03/23/25 15:57 Clinical History: Chest pain and shortness of breath Technique: A frontal view of the chest was obtained Findings: There are no confluent pulmonary infiltrates. The heart size is at the upper limit of normal. No pleural effusion or pneumothorax is seen. There is no definite pulmonary nodule. No fracture is noted. There is thoracic degenerative disc disease Impression: No active disease Electronically signed by Braulio Cuellar 03-23-2025 4:30 PM Chest CTA 03/23/25 16:45 Technique: Axial computed tomography images were obtained of the chest after the administration of intravenous contrast according to the CT angiogram protocol Findings: There is pulmonary embolism in the distal right pulmonary artery and extending into lobar, segmental, and subsegmental branches There is mild dependent subsegmental atelectasis in both lower lobes. The lungs otherwise appear clear without infiltrate or mass. There is no pleural effusion or pneumothorax. There is no sign of pulmonary fibrosis or other diffuse interstitial process. No endobronchial lesion is seen There is no mediastinal, hilar, or axillary adenopathy. The thoracic aorta appears unremarkable with no sign of aneurysm or dissection. There is no pericardial effusion. There is mild dilatation of the right atrium and right ventricle that could be due to right heart strain The spleen is mildly enlarged measuring 14 cm. There are 2 adjacent cysts of the left hepatic lobe, the larger measuring 3.5 cm. There are suspected smaller cysts in the right hepatic lobe with adjacent foci of calcification. No fracture is seen. No focal osseous lesion is evident Impression: 1. Moderate amount of pulmonary embolism 2. Suspected right heart strain 3. Essentially normal-appearing lungs 4. Hepatic cysts ACT 112: Positive. There are findings on this exam that require communication between the performing entity and the patient following Patient Test Result Information Act ([place] ACT 112) guidelines. Electronically signed by Braulio Cuellar 03-23-2025 5:21 PM ECG Data Attestation: I personally reviewed and interpreted this ECG as follows: Indication: + SOB/dyspnea Rate (beats per minute): 85 Rhythm: + normal sinus ECG Intervals/blocks: + Normal QRS, + Normal MO and + Normal QT-c ECG ST segments: + Normal ST segments MDM Narrative 1556: The patient was evaluated in room D4B. A complete history and physical exam was performed Cardiac monitoring: An order was placed for continuous cardiac monitoring. The monitor shows a rate of 80 with sinus rhythm interpreted by me 1656: Vital signs stable. Ultrasound reviewed by me shows a large DVT. Patient is now stating that he has been noncompliant with his Xarelto stating he cannot afford it. Patient states he does not think he has taken it in at least 2 days but is states he is not sure and it could be longer. 1745: Vital signs stable. CTA of the chest shows PEs. Patient states he cannot afford his Xarelto. Patient be started on heparin bolus and drip admitted to the hospitalist team. Impression & Plan Pulmonary embolism, DVT (deep venous thrombosis) Discharge Plan Visit Data Chief Complaint: Referred by Doctor Stated Complaint: POSSIBLE BOOD CLOT RT LEG/CHEST DOC REFERRAL ED Provider: Gonzalez Eduardo Discharge Problem: Pulmonary embolism, DVT (deep venous thrombosis) Patient Disposition: Admitted As Inpatient Condition: Serious Discharge Instructions Interventions: ED Discharge Assessment Last Done: 03/23/25 20:19 Forms Stand Alone Forms: [facility] [employer] Prescriptions Prescriptions: No Action metoprolol tartrate 100 mg tablet 100 mg PO BID Qty: 180 3RF (DME) pen needle, diabetic [BD Ultra-Fine Mini Pen Needle] 31 gauge x 3/16" needle See Rx Instructions .ROUTE .MEDSUPPLY Qty: 100 3RF Rx Instructions: Inject insulin once daily Jardiance 25 mg tablet 25 mg PO DAILY Qty: 90 3RF Patient Comments: QPM metformin 1,000 mg tablet 1,000 mg PO BID 90 Days Qty: 180 3RF losartan 50 mg tablet 50 mg PO DAILY Qty: 90 1RF Xarelto 20 mg tablet 20 mg PO DAILY Qty: 90 1RF Patient Comments: QPM cholecalciferol (vitamin D3) 50 mcg (2,000 unit) tablet 4,000 unit PO DAILY Qty: 90 3RF (DME) Knee Brace Large-XLarge Misc See Rx Instructions .ROUTE .MEDSUPPLY Qty: 1 0RF Rx Instructions: hinged w/ full range. Dx: M19.90 , left leg (DME) Knee Brace Large-XLarge Misc See Rx Instructions .ROUTE .MEDSUPPLY Qty: 1 0RF Rx Instructions: hinged w/ full range. Dx: M19.90 R leg atorvastatin 20 mg tablet 20 mg PO DAILY Qty: 90 1RF Patient Comments: QPM furosemide 20 mg tablet 40 mg PO DAILY Qty: 180 1RF Patient Comments: QPM Ozempic 1 mg/dose (4 mg/3 mL) pen injector 1 mg subcut .weekly Qty: 3 0RF (DME) compress.stocking,knee,reg,med Misc See Rx Instructions .ROUTE .MEDSUPPLY Qty: 2 0RF Rx Instructions: Medium compression 20-30mmHG; Dx: I87.2 insulin glargine [Lantus Solostar U-100 Insulin] 100 unit/mL (3 mL) insulin pen 20 unit subcut DAILY Qty: 15 2RF (DME) Diabetic Shoes Misc See Rx Instructions .Route Qty: 1 0RF Rx Instructions: As directed cyanocobalamin (vitamin B-12) 1,000 mcg/mL solution 1,000 mcg IM ONCE Qty: 1 0RF (DME) Dexcom G7 Sensor Device See Rx Instructions .Route Qty: 3 11RF Rx Instructions: Change sensor every 10 days (DME) Dexcom G7 Career Services Coordinator Misc See Rx Instructions .Route Qty: 1 0RF Rx Instructions: Check glucose 4 times daily and as needed Referrals Referrals: Juli Gutierrez DO [Primary Care Provider] -
[2025-03-23] MEDS: METOPROLOL TARTRATE 100 MG TAB PO SCH (21:39)
[2025-03-23] MEDS: INSULIN ASPART PER UNIT CHARGE SC SCH (21:47)
[2025-03-23] MEDS: LANTUS PER UNIT CHARGE SQ SCH (21:48)
[2025-03-24 02:32] LABS: ANTI-Xa, UFH(UnfractionatedHep 0.62 IU/ml (0.3-0.7)
--- NOTE | 2025-03-24 07:38 | Hospitalist Progress Note ---
Date of Service March 24, 2025 Assessment & Plan (1) DVT femoral (deep venous thrombosis) with thrombophlebitis: (2) Pulmonary embolism: (3) Atrial fibrillation: (4) Diabetes type 2, uncontrolled: (5) Obstructive sleep apnea: (6) Hypertension: Plan Pt is a 64 yo male with PMH of a-fib, depression, DM2, JESSICA, dyslipidemia, factor V Leiden, venous insufficiency, and hx of DVT/PE admitted for heparin drip due to stable right DVT and PE. #DVT/PE LE doppler showing several stable thromboses in right leg. CTA chest showing stable thrombosis at distal right pulmonary artery. Vitals are stable. Pt unable to afford oral meds. - Heparin drip to continue - Will bridge to DOAC Appreciate CM for assistance in finding program for pt to afford meds for home - Tylenol 650mg po prn for LE pain #DM2 Last A1c was 12.4% - Glargine 10u BID - Aspart per SS Low 110, high 140 CF 40, CR 13 #B12 deficiency - Ordered B12 1000mcg PO qam #JESSICA -CPAP for overnight Dispo; med/surg Diet: DM2 VTE proph: heparin drip Code: full Admission and Anticipated Discharge Date Admission Date: March 23, 2025 Subjective No acute events overnight. This morning, pt reports he had the worst night of his life due to the uncomfortable hospital bed. Pt states bed caused him to have 10/10 LBP. He preferred sleeping on the floor. Offered pt tylenol to help with back pain. He continues with discomfort at his right calf, but no SOB at rest or chest pains. Assisted pt from supine to sit with minimal effort. Pt able to sit at EOB to eat breakfast without limitation due to lumbar discomfort. Review of Systems Review of Systems: As per HPI Physical Exam Physical Exam: Gen: Pt agitated due to interrupted sleep 2/2 back pain HENT: Normocephalic, atraumatic. External ear without deformities. Trachea midline, no thyromegaly Cardio: RRR, no murmurs or clicks. Resp: CTAB, Equal bilateral chest rise, no increased work of breathing GI: Non distended, soft, non tender, normoactive bowel sounds Ext: Moving all 4 extremities independently, right LE with firm swelling at calf, ankle and foot. Left LE soft, non tender Skin: Dry, of normal skin tone Neuro: A& O x 3, normal affect Results & Data Results & Data Vital Signs (Past 12 Hours) Vital Signs Temp Pulse Resp BP Pulse Ox O2 Del Method 03/23/25 20:30 Room Air 03/23/25 20:30 36.5 C 92 H 20 137/93 94 Room Air 03/23/25 20:00 77 18 131/85 97 Room Air
[2025-03-24] MEDS: ACETAMINOPHEN 325 MG TAB PO PRN (08:00)
[2025-03-24 08:58] LABS: ANTI-Xa, UFH(UnfractionatedHep 0.46 IU/ml (0.3-0.7)
[2025-03-24] MEDS: ATORVASTATIN 20 MG TAB PO SCH (09:38)
[2025-03-24] MEDS: CYANOCOBALAMIN (B-12) 500 MCG TABLET PO SCH (09:39)
[2025-03-24] MEDS: FUROSEMIDE 40 MG TAB PO SCH (09:40)
[2025-03-24] MEDS: LOSARTAN POTASSIUM 50 MG TAB PO SCH (09:40)
--- NOTE | 2025-03-24 09:53 | Electrocardiogram Report ---
Test Reason : Blood Pressure : */* mmHG Vent. Rate : 85 BPM Atrial Rate : 85 BPM P-R Int : 178 ms QRS Dur : 88 ms QT Int : 372 ms P-R-T Axes : -6 -24 0 degrees QTcB Int : 442 ms Normal sinus rhythm Minimal voltage criteria for LVH, may be normal variant ( R in aVL ) Borderline ECG When compared with ECG of 04-Dec-2013 13:41, No significant change was found Confirmed by Juan C Carlos ([id number]) on 03/24/2025 9:53:01 AM Referred By: Confirmed By: Juan C Carlos
--- NOTE | 2025-03-24 12:40 | Discharge Summary ---
Date of Service March 24, 2025 Admission HPI Per Admitting Provider Pt is a 64 yo male with PMH of a-fib, depression, DM2, JESSICA, dyslipidemia, factor V Leiden, venous insufficiency, and hx of DVT/PE who presented to his PCP office with c/o right lower leg and thigh pain as well as recent onset of shortness of breath. Pt states right lower leg pain started 2-3 days ago in [place] and has traveled to [facility]. Increased difficulty breathing started today. Pt had been prescribed Xarelto, but states he has not taken it over the last couple months due to not being able to afford the prescription. Pt denies fever/chills, CP, abdominal pain, dizziness, headache, N/V/D. Principal Diagnosis PE and R LE DVT Discharge Exam Gen: Pt agitated due to interrupted sleep 2/2 back pain HENT: Normocephalic, atraumatic. External ear without deformities. Trachea midline, no thyromegaly Cardio: RRR, no murmurs or clicks. Resp: CTAB, Equal bilateral chest rise, no increased work of breathing GI: Non distended, soft, non tender, normoactive bowel sounds Ext: Moving all 4 extremities independently, right LE with firm swelling at calf, ankle and foot. Left LE soft, non tender Skin: Dry, of normal skin tone Neuro: A& O x 3, normal affect Discharge Data Allergies Allergy/AdvReac Type Severity Reaction Status Date / Time zolpidem [From Ambien] Allergy Intermediate COULD NOT Verified 03/23/25 14:05 SLEEP Penicillins Allergy Mild RASH Verified 03/23/25 14:05 Consultations 03/23/25 17:44 ED Decision to Admit Stat Ordered Studies 03/23/25 15:41 US venous doppler LE RT Urgent 03/23/25 16:45 CT angio chest PE protocol Stat Hospital Course (1) DVT femoral (deep venous thrombosis) with thrombophlebitis: (2) Pulmonary embolism: (3) Atrial fibrillation: (4) Diabetes type 2, uncontrolled: (5) Obstructive sleep apnea: (6) Hypertension: Plan Pt is a 64 yo male with PMH of a-fib, depression, DM2, JESSICA, dyslipidemia, factor V Leiden, venous insufficiency, and hx of DVT/PE admitted for heparin drip due to stable right DVT and PE. #DVT/PE LE doppler showing several stable thromboses in right leg. CTA chest showing stable thrombosis at distal right pulmonary artery. Vitals are stable. Pt unable to afford oral meds. - Heparin drip to continue - Will bridge to DOAC Appreciate CM for assistance in finding program for pt to afford meds for home - Tylenol 650mg po prn for LE pain #DM2 Last A1c was 12.4% - Glargine 10u BID - Aspart per SS Low 110, high 140 CF 40, CR 13 #B12 deficiency - Ordered B12 1000mcg PO qam #JESSICA -CPAP for overnight Dispo; med/surg Diet: DM2 VTE proph: heparin drip Code: full Total Time Total Time Spent Total Time Spent (In Minutes): <30 Discharge Plan Discharge Items Patient Disposition: Home - Self-Care Reason For Visit: PE/R LE DVT Discharge Diagnosis: PE and R LE DVT Condition on Discharge: Serious Activity: Resume your previous activity Non-emergency contact: Primary Care Provider Call non-emergency contact if: your symptoms worsen Follow-up/Referrals: Juli Gutierrez DO [Primary Care Provider] - 04/02/25 4:20 pm Diet: Carb Consistent or DM2 and Heart Healthy Addtl Attending Provider Instructions: Blood clots: - You are very prone to clotting, and have formed new clots again. Fortunately you are quite stable given the situation. Generally clots are very easy to treat when someone is on a blood thinnerour case manager specialist has called, and the Xarelto is $0, fortunately, so we will basically just send a prescription as though you are starting over. Your next dose at home should be at bedtime tonight. - The leg swelling should slowly improve over time (maybe 1-2 months)the more you move, the more the swelling will reduce. Also, when you are sitting, keeping your leg elevated will help (but not as much is movement) - the shortness of breath from clotting in your lungs should also slowly improve over time (maybe 1-2 months)with the shortness of breath, do not "push through" of something feels like it is too much, but as long as you are not feeling inappropriately short of breath/very short winded/etc., there is not really "formal restrictions" on activity (i.e. as long as you feel okay or reasonably okay doing it, it is okay to do) unrelated to the clots, but very related to the uncontrolled diabetes, our case manager specialist also found that your Jardiance is $0. Because high sugars clog arteries, and anytime someone's A1c is above 7.0 they are clogging arteries/working on their first heart attack or stroke, and your A1c most recently was about 12.5I would strongly recommend you start the Jardiance and continue to follow-up closely. Lastly, your B12 levels have been very lowI know they are giving you B12 shots in the office, but have also sent a prescription for an oral B12 supplement to help get your levels up faster. Pending Studies at Discharge: No Stand-Alone Forms: [facility] [employer], Smoking Cessation Medications and DC Order Prescriptions: New cyanocobalamin (vitamin B-12) 1,000 mcg tablet 1,000 mcg PO DAILY Qty: 30 5RF Xarelto 20 mg tablet 20 mg PO DAILY Qty: 90 0RF Rx Instructions: must administer with evening meal Jardiance 25 mg tablet 25 mg PO DAILY Qty: 90 0RF Continued metoprolol tartrate 100 mg tablet 100 mg PO BID Qty: 180 3RF (DME) pen needle, diabetic [BD Ultra-Fine Mini Pen Needle] 31 gauge x 3/16" needle See Rx Instructions .ROUTE .MEDSUPPLY Qty: 100 3RF Rx Instructions: Inject insulin once daily Jardiance 25 mg tablet 25 mg PO DAILY Qty: 90 3RF Patient Comments: QPM metformin 1,000 mg tablet 1,000 mg PO BID 90 Days Qty: 180 3RF losartan 50 mg tablet 50 mg PO DAILY Qty: 90 1RF Xarelto 20 mg tablet 20 mg PO DAILY Qty: 90 1RF Patient Comments: QPM cholecalciferol (vitamin D3) 50 mcg (2,000 unit) tablet 4,000 unit PO DAILY Qty: 90 3RF (DME) Knee Brace Large-XLarge Misc See Rx Instructions .ROUTE .MEDSUPPLY Qty: 1 0RF Rx Instructions: hinged w/ full range. Dx: M19.90 , left leg (DME) Knee Brace Large-XLarge Misc See Rx Instructions .ROUTE .MEDSUPPLY Qty: 1 0RF Rx Instructions: hinged w/ full range. Dx: M19.90 R leg atorvastatin 20 mg tablet 20 mg PO DAILY Qty: 90 1RF Patient Comments: QPM furosemide 20 mg tablet 40 mg PO DAILY Qty: 180 1RF Patient Comments: QPM semaglutide 1 mg/dose (4 mg/3 mL) pen injector 1 mg subcut .weekly Qty: 3 0RF (DME) compress.stocking,knee,reg,med Misc See Rx Instructions .ROUTE .MEDSUPPLY Qty: 2 0RF Rx Instructions: Medium compression 20-30mmHG; Dx: I87.2 insulin glargine [Lantus Solostar U-100 Insulin] 100 unit/mL (3 mL) insulin pen 20 unit subcut DAILY Qty: 15 2RF (DME) Diabetic Shoes Misc See Rx Instructions .Route Qty: 1 0RF Rx Instructions: As directed cyanocobalamin (vitamin B-12) 1,000 mcg/mL solution 1,000 mcg IM ONCE Qty: 1 0RF (DME) Dexcom G7 Sensor Device See Rx Instructions .Route Qty: 3 11RF Rx Instructions: Change sensor every 10 days (DME) Dexcom G7 Director Field Services Misc See Rx Instructions .Route Qty: 1 0RF Rx Instructions: Check glucose 4 times daily and as needed Discharge Orders: Discharge Order (Routine); Ordered 03/24/25 Ordered By: Jeff Myers Admission Data Admit Date/Time: 03/23/25 18:46 Attending Provider: Jeff Myers Admit Provider: Nicolasa Lara Primary Care Provider: Juli Gutierrez Other Providers: Jeff Myers Other Interventions: Discharge Summary Assessment (RN) Last Done: 03/24/25 14:49 Supervising Physician Co-Signing Physician Notes I personally examined the patient and verified all woodward points of history and exam, discussed case, and agree with decision making with Dr Lara Main complaint today is leg pain and relates it to the bed. Still has a little bit of leg swelling. No significant dyspnea on exertion although he has not walked much. Does not express concerns about going home as long as medications are covered. Case management looked into the situation, Li is a $0 co-pay (interestingly as is his Jardiance). Vitals noted, in general he is awake and alert pleasant no distress. HEENT normocephalic atraumatic mucous membranes moist. Breathing unlabored no accessory muscle use good effort. Skin without rashes pallor or icterus. Neuro without focal deficits. Acute PE/DVT with CT findings also consistent with right heart strain in the setting of hypercoagulable statefortunately anticoagulation was not cost prohibitive. Patient is stable for home. Xarelto sent to pharmacy. Otherwise as above Resident Activity Tracking Resident Involvement: Resident Care Provided Care Provided: Adult Hospital Medicine
[2025-03-24 13:05] VITALS: BP 119/73; PULSE 78; RESP 18; TEMP 97.7; O2SAT 94
--- NOTE | 2025-03-24 16:14 | Billing Data ---
Date of Service March 24, 2025 Coding Level of Care Code 79883 IN/OBS DISCH 30 MIN/LESS
== END 2025-03-24 15:25 | disposition home or self-care (01) | DRG 299 ==
LOC: ED 15:33 → INTOOBSV 18:46 → 3W 18:46